=== PATIENT | female | born 1950 | race Two or more races ===

== ENCOUNTER → 2024-09-15 | Outpatient (CLI) | payer MEDICAID, SELFPAY ==
--- NOTE | 2024-09-15 14:20 | XR_ITS ---
Examination: Bone densitometry Date and time of exam:September 15, 2024 1459 hours INDICATIONS: Hysterectomy age 49 Technique: Lumbar spine and hip total bone mineralization values of an calculated. Peak reference and age match control results have been displayed. Findings: Lumbar spine total bone mineralization is0.724 gm/cm2. This is 2.9 standard deviations below peak reference. This is 0.5 standard deviations below age-matched controls. Hip total bone mineralization is 0.489 gm/cm2 This is 3.5 standard deviations below peak reference. This is 1.7 standard deviations below age-matched controls Impression: There is osteoporosis based on lumbar spine measurements. There is osteoporosis based on hip measurements
== END | disposition home or self-care (01) ==
PROVIDERS: Referring Provider Nurse Practitioner Family; Visit Provider Nurse Practitioner Family
DX: M81.0 Age-related osteoporosis without current pathological fracture (principal)
CPT/HCPCS: 77080